=== PATIENT | female | born 1990 | race Caucasian/White ===

== ENCOUNTER 2020-03-08 10:24 | Emergency (ER) | payer OTHER, SELFPAY ==
[2020-03-08 10:47] VITALS: BP 129/80; PULSE 87; RESP 16; TEMP 36.8; O2SAT 96; BMI 42.5
[2020-03-08 11:02] VITALS: BP 133/85; PULSE 78; RESP 14; O2SAT 96
--- NOTE | 2020-03-08 11:24 | XR_ITS ---
WS: [id number] PORTABLE CHEST HISTORY: dyspnea/cough COMPARISON: None available. Quality of examination is limited by body habitus. Mild haziness and interstitial thickening over both lungs. No dense area of consolidation. No pleural effusion or pneumothorax. Cardiac size: Normal. Mediastinum/Aorta: Normal mediastinum. No osseous abnormality seen. XR/XR chest 1V portable [id number] IMPRESSION: Study limited by body habitus. Mild diffuse pneumonitis versus interstitial jayshree wynne
--- NOTE | 2020-03-08 11:24 | ECG_ITS ---
[facility] Test Date: 2020-03-08 Pat Name: Oralia Chang Department: Room: Gender: Female Credit Counselor: : 1990 Requested By: Akira Tierney Order Number: [id number] Magui MD: Earle Crawford M.D. Measurements Intervals [place] Rate: 67 P: 20 OR: 149 QRS: 9 QRSD: 89 T: 38 QT: 398 QTc: 423 Interpretive Statements SINUS RHYTHM No previous ECG available for comparison Electronically Signed On 03-08-2020 21:36:54 CDT by Earle Crawford M.D. [id number]
[2020-03-08 11:35] VITALS: PULSE 76; RESP 14; O2SAT 98
--- NOTE | 2020-03-08 11:45 | PC.NURSE ---
EKG done at 1134 and shown to ER doctor
[2020-03-08 12:03] LABS: Basophils % 0.5 %; Eosinophils # 0.1 10^3/uL (0.0-0.8); Eosinophils % 1.4 %; Hemoglobin 14.8 g/dL (11.5-15.3); Lymphocytes # 2.1 10^3/uL (0.8-4.8); Lymphocytes % 33.3 %; Mean Corpuscular HGB Conc 35.2 g/dL (30.0-36.0); Mean Corpuscular Hemoglobin 31.2 pg (28.0-34.0); Mean Corpuscular Volume 88.6 fL (81-99); Mean Platelet Volume 10.5 fL (7.4-10.4); Monocytes # 0.3 10^3/uL (0.2-0.9); Monocytes % 4.5 %; Neutrophils # 3.86 10^3/uL (1.8-7.7); Neutrophils % 60.1 %; Nucleated Red Blood Cells % 0 %; Platelet Count 241 10^3/cmm (130-400); Red Blood Count 4.74 10^6/uL (4.1-5.3); Red Cell Distribution Width 12.1 % (12.1-15.1); White Blood Count 6.4 10^3/uL (4.0-10.0)
[2020-03-08 12:21] LABS: Alanine Aminotransferase 14 U/L (0-33); Albumin Level 4.4 g/dL (3.5-5.2); Alkaline Phosphatase 76 IU/L (35-105); Anion Gap 16.2 (5-19); Aspartate Amino Transferase 7 U/L (0-32); Blood Urea Nitrogen 13 mg/dL (6-20); Calcium 9.8 mg/dL (8.5-10.5); Carbon Dioxide 23 mmol/L (22-29); Chloride 102 mmol/L (98-107); Globulin 2.6 g/dL (1.3-4.6); Glomerular Filtration Rate 144.9 mL/min (90-130); Glucose 104 mg/dL (65-115); Osmolality Calculated 284 mOsm/kg (285-295); Potassium 4.2 mmol/L (3.5-5.1); Sodium 137 mmol/L (136-145); Total Bilirubin 0.3 mg/dL (0.15-1.2)
[2020-03-08 12:25] LABS: Troponin(5th) Baseline 6 ng/L (0-10)
[2020-03-08 12:33] VITALS: BP 113/78; PULSE 70; RESP 19; O2SAT 98
[2020-03-08 12:47] LABS: Procalcitonin 0.02 ng/mL (0-0.5)
[2020-03-08 12:58] LABS: C Reactive Protein 1.1 mg/L (0.0-4.9); Ferritin 80 ng/mL (15-150); Lactate Dehydrogenase 179 U/L (135-214)
[2020-03-08 13:00] LABS: ABG PCO2 33.6 mmHg (35-45); ABG PH Result 7.46 (7.35-7.45); Arterial Blood Gas Hematocrit 46.2 % (37-47); Base Excess ABG 0.6 mmol/L (-2.0-2.0); Blood Gas Allen Test Pos; Blood Gas Operator Identificat CAK; Blood Gas Sample Site Radial, left; Blood Gas Sample Type Arterial; HCO3 ABG 23.9 mmol/L (22-26); Oxygen Device ROOM AIR; PO2 ABG 80.9 mmHg (80.0-100.0)
--- NOTE | 2020-03-08 13:24 | ECG_ITS ---
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 Measurements Intervals [place] Rate: 70 P: 66 NC: 155 QRS: 54 QRSD: 88 T: 46 QT: 411 QTc: 444 Interpretive Statements SINUS RHYTHM Compared to ECG 03/08/2020 11:36:50 No significant changes Electronically Signed On 03-08-2020 21:42:53 CDT by Earle Crawford M.D. [id number]
[2020-03-08 13:33] VITALS: BP 126/81; PULSE 63; RESP 18; O2SAT 98
--- NOTE | 2020-03-08 13:49 | ED_ITS ---
HPI - Arrhythmia/Palpitations General: Chief Complaint: Arrhythmia/Palpitations Stated Complaint: chest pain Time Seen by Provider: 03/08/20 11:11 History of Present Illness: HPI narrative: 29-year-old female comes in complaining of chest discomfort. She was sitting at rest began having some chest discomfort that lasted 15 to 20 minutes describes it more of a tightness then later began to have some tachypnea and diaphoresis she never had any numbness and tingling to the face of the extremities. No nausea. MD complaint: palpitations (Chest discomfort) Onset (ago): minute(s) Duration: now resolved Severity: moderate Context: occurred during rest Associated symptoms: Deny anxiety, cough, diaphoresis, muscle cramps, nausea, paresthesias, pre-syncope, sense of impending doom, short of breath, syncope or vomiting Review of Systems Const: Denies: diaphoresis ENMT: Denies: throat pain, ear or mastoid pain, nasal discharge or nasal congestion Card: Denies: syncope or pre-syncope Resp: Denies: dyspnea, productive cough or non-productive cough GI: Denies: nausea or vomiting : Denies: flank pain, difficulty voiding, dysuria, urinary frequency or urinary urgency Musc: Denies: muscle cramps Skin/Breast: Denies: rash or pruritus Psych: Denies: anxiety PFSH ED PFSH: Family History (Updated 03/08/20 @ 13:53 by Akira Palmer DO) Mother CAD (coronary artery disease), Onset Age: 40 Female Reproductive History: Date of last menstrual period: 03/05/20 Physical Exam Const: COMMON NORMALS: no acute distress GENERAL APPEARANCE: cooperative and comfortable ORIENTATION/CONSCIOUSNESS: Yes awake, Yes oriented to person, Yes oriented to place and Yes oriented to time HENMT: COMMON NORMALS: normocephalic, atraumatic and hearing grossly normal bilaterally HEAD & SCALP: normocephalic and atraumatic Neck/C-Spine: COMMON NORMALS: no JVD Resp: COMMON NORMALS: normal respiratory effort, No retractions, No use of accessory muscles and clear to auscultation bilaterally AUSCULTATION: clear to auscultation bilaterally Cardio: COMMON NORMALS: no JVD, regular rate, regular rhythm and No murmurs present (Cardio) RATE: regular rate RHYTHM: regular rhythm GI: COMMON NORMALS: Soft to palpation and No hepatosplenomegaly present AUSCULTATION: Yes normoactive bowel sounds PALPATION: Yes Soft to palpation, No Tenderness to palpation present (GI), No Guarding due to palpation present (GI) and Yes No hepatosplenomegaly present Extremity: COMMON NORMALS: normal to inspection, capillary refill normal, no clubbing, cyanosis or edema, no calf tenderness and no pedal edema Neuro: SENSORIUM/ORIENTATION: Yes oriented to person, Yes oriented to place and Yes oriented to time Skin: COMMON NORMALS: no rashes or lesions noted GENERAL SKIN EXAM: no rashes or lesions noted Course Vital Signs: Vital signs: Vital Signs Temperature 98.3 F 03/08/20 10:47 Pulse Rate 83 03/08/20 15:00 Respiratory Rate 20 H 03/08/20 15:00 Blood Pressure 118/80 03/08/20 15:00 Pulse Oximetry 96 03/08/20 15:00 MDM - Arrhythmia/Palpitations MDM Narrative: Medical decision making narrative: Reviewed recommendations with patient we will discharge her home with follow-up Lab Data: Labs: Lab Results 03/08/20 03/08/20 03/08/20 Range/Units 11:59 11:59 11:59 WBC 6.4 (4.0-10.0) 10^3/ uL RBC 4.74 (4.1-5.3) 10^6/u L Hgb 14.8 (11.5-15.3) g/dL Hct 42.0 (37.0-47.0) % MCV 88.6 (81-99) fL MCH 31.2 (28.0-34.0) pg MCHC 35.2 (30.0-36.0) g/dL RDW 12.1 (12.1-15.1) % Plt Count 241 (130-400) 10^3/c mm MPV 10.5 H (7.4-10.4) fL Neut % (Auto) 60.1 % Lymph % (Auto) 33.3 % [place] % (Auto) 4.5 % Eos % (Auto) 1.4 % Baso % (Auto) 0.5 % Neut # (Auto) 3.86 (1.8-7.7) 10^3/u L Lymph # (Auto) 2.1 (0.8-4.8) 10^3/u L [place] # (Auto) 0.3 (0.2-0.9) 10^3/u L Eos # (Auto) 0.1 (0.0-0.8) 10^3/u L Baso # (Auto) 0.0 (0.0-0.1) 10^3/u L Nucleated RBC % (a uto) 0 % Nucleated RBCs # 0.0 /100WBC Fibrinogen (174-498) mg/dL D-Dimer (0-0.59) ug/mIFE U Specimen Type Sample Site ABG pH (7.35-7.45) ABG pCO2 (35-45) mmHg ABG pO2 (80.0-100.0) mmH g ABG HCO3 (22-26) mmol/L ABG Base Excess (-2.0-2.0) mmol/ L Nile Test Hematocrit (37-47) % O2 Delivery Device FiO2 % Room Service Clerk ID Sodium 137 (136-145) mmol/L Potassium 4.2 (3.5-5.1) mmol/L Chloride 102 (98-107) mmol/L Carbon Dioxide 23 (22-29) mmol/L Anion Gap 16.2 (5-19) BUN 13 (6-20) mg/dL Creatinine 0.5 (0.5-0.9) mg/dL GFR Calculation 144.9 H (90-130) mL/min Glucose 104 (65-115) mg/dL Calculated Osmolal ity 284 L (285-295) mOsm/k g Calcium 9.8 (8.5-10.5) mg/dL Ferritin (15-150) ng/mL Total Bilirubin 0.3 (0.15-1.2) mg/dL AST 7 (0-32) U/L ALT 14 (0-33) U/L Alkaline Phosphata se 76 (35-105) IU/L Lactate Dehydrogen ase (135-214) U/L Troponin T Baselin e 6 (0-10) ng/L Troponin T 120 Min [place] (0-10) ng/L Delta Troponin T (0-10) ABS# C-Reactive Protein (0.0-4.9) mg/L Total Protein 7.0 (6.6-8.7) g/dL Albumin 4.4 (3.5-5.2) g/dL Globulin 2.6 (1.3-4.6) g/dL Procalcitonin (0-0.5) ng/mL SARS-CoV-2 RNA (RT -PCR) (NOT DETECTED) 03/08/20 03/08/20 03/08/20 Range/Units 11:59 11:59 12:30 WBC (4.0-10.0) 10^3/ uL RBC (4.1-5.3) 10^6/u L Hgb (11.5-15.3) g/dL Hct (37.0-47.0) % MCV (81-99) fL MCH (28.0-34.0) pg MCHC (30.0-36.0) g/dL RDW (12.1-15.1) % Plt Count (130-400) 10^3/c mm MPV (7.4-10.4) fL Neut % (Auto) % Lymph % (Auto) % [place] % (Auto) % Eos % (Auto) % Baso % (Auto) % Neut # (Auto) (1.8-7.7) 10^3/u L Lymph # (Auto) (0.8-4.8) 10^3/u L [place] # (Auto) (0.2-0.9) 10^3/u L Eos # (Auto) (0.0-0.8) 10^3/u L Baso # (Auto) (0.0-0.1) 10^3/u L Nucleated RBC % (a uto) % Nucleated RBCs # /100WBC Fibrinogen 341 (174-498) mg/dL D-Dimer 0.10 (0-0.59) ug/mIFE U Specimen Type Sample Site ABG pH (7.35-7.45) ABG pCO2 (35-45) mmHg ABG pO2 (80.0-100.0) mmH g ABG HCO3 (22-26) mmol/L ABG Base Excess (-2.0-2.0) mmol/ L Nile Test Hematocrit (37-47) % O2 Delivery Device FiO2 % Room Service Clerk ID Sodium (136-145) mmol/L Potassium (3.5-5.1) mmol/L Chloride (98-107) mmol/L Carbon Dioxide (22-29) mmol/L Anion Gap (5-19) BUN (6-20) mg/dL Creatinine (0.5-0.9) mg/dL GFR Calculation (90-130) mL/min Glucose (65-115) mg/dL Calculated Osmolal ity (285-295) mOsm/k g Calcium (8.5-10.5) mg/dL Ferritin 80 (15-150) ng/mL Total Bilirubin (0.15-1.2) mg/dL AST (0-32) U/L ALT (0-33) U/L Alkaline Phosphata se (35-105) IU/L Lactate Dehydrogen ase 179 (135-214) U/L Troponin T Baselin e (0-10) ng/L Troponin T 120 Min [place] (0-10) ng/L Delta Troponin T (0-10) ABS# C-Reactive Protein 1.1 (0.0-4.9) mg/L Total Protein (6.6-8.7) g/dL Albumin (3.5-5.2) g/dL Globulin (1.3-4.6) g/dL Procalcitonin 0.02 (0-0.5) ng/mL SARS-CoV-2 RNA (RT -PCR) Not detected (NOT DETECTED) 03/08/20 03/08/20 Range/Units 12:49 14:09 WBC (4.0-10.0) 10^3/ uL RBC (4.1-5.3) 10^6/u L Hgb (11.5-15.3) g/dL Hct (37.0-47.0) % MCV (81-99) fL MCH (28.0-34.0) pg MCHC (30.0-36.0) g/dL RDW (12.1-15.1) % Plt Count (130-400) 10^3/c mm MPV (7.4-10.4) fL Neut % (Auto) % Lymph % (Auto) % [place] % (Auto) % Eos % (Auto) % Baso % (Auto) % Neut # (Auto) (1.8-7.7) 10^3/u L Lymph # (Auto) (0.8-4.8) 10^3/u L [place] # (Auto) (0.2-0.9) 10^3/u L Eos # (Auto) (0.0-0.8) 10^3/u L Baso # (Auto) (0.0-0.1) 10^3/u L Nucleated RBC % (a uto) % Nucleated RBCs # /100WBC Fibrinogen (174-498) mg/dL D-Dimer (0-0.59) ug/mIFE U Specimen Type Arterial Sample Site Radial, left ABG pH 7.46 H (7.35-7.45) ABG pCO2 33.6 L (35-45) mmHg ABG pO2 80.9 (80.0-100.0) mmH g ABG HCO3 23.9 (22-26) mmol/L ABG Base Excess 0.6 (-2.0-2.0) mmol/ L Nile Test Pos Hematocrit 46.2 (37-47) % O2 Delivery Device Room air FiO2 21.0 % Room Service Clerk ID Cak Sodium (136-145) mmol/L Potassium (3.5-5.1) mmol/L Chloride (98-107) mmol/L Carbon Dioxide (22-29) mmol/L Anion Gap (5-19) BUN (6-20) mg/dL Creatinine (0.5-0.9) mg/dL GFR Calculation (90-130) mL/min Glucose (65-115) mg/dL Calculated Osmolal ity (285-295) mOsm/k g Calcium (8.5-10.5) mg/dL Ferritin (15-150) ng/mL Total Bilirubin (0.15-1.2) mg/dL AST (0-32) U/L ALT (0-33) U/L Alkaline Phosphata se (35-105) IU/L Lactate Dehydrogen ase (135-214) U/L Troponin T Baselin e (0-10) ng/L Troponin T 120 Min [place] 6.00 (0-10) ng/L Delta Troponin T 0 (0-10) ABS# C-Reactive Protein (0.0-4.9) mg/L Total Protein (6.6-8.7) g/dL Albumin (3.5-5.2) g/dL Globulin (1.3-4.6) g/dL Procalcitonin (0-0.5) ng/mL SARS-CoV-2 RNA (RT -PCR) (NOT DETECTED) Discharge Plan Discharge Patient Disposition: Home Clinical Impression: Atypical chest pain, Pneumonitis, Suspected 2019-nCoV infection Condition: Stable Prescriptions: No Action No Known Home Medications RF: 0 Discharge Orders: Discharge Order (Routine); Ordered 03/08/20 Ordered By: Akira Palmer Referrals: Francisco Fernando [Primary Care Provider] - Discharge Diet: Usual diet Discharge Activity: Limit activity as instructed Activity Restrictions/Additional Instructions: Limit strenuous activity. Case management will call to set up a sestamibi stress test. You were tested for COVID-19 today you should remain in quarantine until the results are back. Discharge Date/Time: 03/08/20 15:00 Coding Level of Care Code ED Industrial Automation Engineer for Ezekiel Fwd Exam Comprehensive
[2020-03-08 14:39] LABS: Troponin 5 2HR Delta 0 ABS# (0-10)
[2020-03-08 15:00] VITALS: BP 118/80; PULSE 83; RESP 20; O2SAT 96
[2020-03-08 16:00] LABS: Fibrinogen 341 mg/dL (174-498)
[2020-03-10 00:07] LABS: Quest SARS-CoV-2 RNA NOT DETECTED (NOT DETECTED)
--- NOTE | 2020-03-10 07:53 | PC.NURSE ---
Pt called and notified of negative COVID result.
--- NOTE | 2020-03-10 07:54 | DCPLANNER ---
e business manager was asked to schedule an outpatient stress test for patient. e business manager faxed the outpatient order to centralized scheduling. e business manager will call for appointment information.
--- NOTE | 2020-03-22 12:02 | DCPLANNER ---
manager union called centralized scheduling, spoke with Isabelle. manager union asked about an appointment being scheduled, shoe parts caser was told that that centralized scheduling has left a message for patient for patient to call centralized scheduling with correct insurance information.
== END 2020-03-08 15:00 | disposition home or self-care (01) ==
PROVIDERS: Emergency Provider Family Medicine; PCP Physician Assistant Medical
DX: R07.89 Other chest pain (principal); J18.9 Pneumonia, unspecified organism; Z20.828 Contact with and (suspected) exposure to other viral communicable diseases
CPT/HCPCS: 12345; 36415; 36600; 71045; 80053; 82728; 82803; 83615; 84145; 84484; 85025; 85378; 85384; 86140; 87635; 93005; 99283; 99284